=== PATIENT | female | born 1990 | race Two or more races ===

== ENCOUNTER → 2025-01-05 | Outpatient (CLI) | payer MEDICAID, SELFPAY ==
[2025-01-04 17:22] LABS: HCG Qualitative,Urine Negative
--- NOTE | 2025-01-05 15:30 | XR_ITS ---
Examination: CT abdomen and pelvis without contrast. Coronal 3-D reconstructions. Sagittal 2-D reconstructions. Date and time of exam:January 05, 2025 1611 hours INDICATIONS: Hematuria episodes beginning one month ago CTDI: vol (mGy): 6.57 DLP: (mGycm): 319 Technique: Axial images of the abdomen have been obtained, 3 mm slice thickness Intravenous contrast material has not been administered. Low dose protocols were performed. One or more of the following dose reduction techniques were used; automated exposure control, adjustment of the mA and/or KV according to patient size, use of iterative reconstruction technique. Findings: No focal liver or splenic lesions No gallstones No pancreatic or adrenal mass 2 mm anterior right renal calculus Normal appendix No bowel obstruction No hydronephrosis or ureteral calculi No bladder mass or bladder calculi No pelvic mass IMPRESSION: 2 mm nonobstructing right renal calculus
== END | disposition home or self-care (01) ==
PROVIDERS: PCP Physician Assistant; Referring Provider Physician Assistant; Visit Provider Physician Assistant
DX: N20.0 Calculus of kidney (principal); Z32.00 Encounter for pregnancy test, result unknown
CPT/HCPCS: 74176; 81025

== ENCOUNTER → 2025-05-28 | Outpatient (CLI) | payer MEDICAID, SELFPAY ==
--- NOTE | 2025-05-28 10:45 | XR_ITS ---
Examination: Pelvic ultrasound, transabdominal, complete Technique: Transabdominal ultrasound of the pelvis performed using grayscale imaging Date and time of exam: May 28, 2025, 10:50 AM INDICATIONS: Intermittent pelvic pain beginning 10 years ago FINDINGS: Uterus 9.5 cm endometrial stripe 0.4 cm No uterine mass or intrauterine gestation Right ovary 3.7 cm arterial flow small follicles Left ovary 3.2 cm arterial flow small follicles IMPRESSION: Negative examination
--- NOTE | 2025-05-28 10:45 | XR_ITS ---
Examination: Transvaginal ultrasound of the pelvis, complete Technique: Transvaginal sonographic images pelvis performed using moraes scale imaging Exam date and time: May 28, 2020 5:11 AM INDICATIONS: Pelvic pain beginning 10 years ago FINDINGS: Uterus 7.6 cm endometrial stripe 0.5 cm No uterine mass or intrauterine gestation Right ovary 3.5 cm arterial flow. Left ovary 3.5 cm arterial flow IMPRESSION: Negative study.
== END | disposition home or self-care (01) ==
DX: R10.2 Pelvic and perineal pain (principal); N83.209 Unspecified ovarian cyst, unspecified side
CPT/HCPCS: 76830; 76856